=== PATIENT | female | born 1970 | race Caucasian/White ===

== ENCOUNTER → 2023-03-14 14:56 | Outpatient (REF) | payer BC, SELFPAY | LOC: HWRAD 14:56 | PROVIDERS: ATTENDING PHYSICIAN Anesthesiology Pain Medicine; FAMILY PHYSICIAN Family Medicine | DX: M79.641 Pain in right hand (principal) | CPT/HCPCS: 73130 ==

== ENCOUNTER → 2023-04-06 07:08 | Outpatient (REF) | payer BC, SELFPAY | LOC: PAVMRI 07:08 | PROVIDERS: ATTENDING PHYSICIAN Anesthesiology Pain Medicine; FAMILY PHYSICIAN Family Medicine | DX: M54.16 Radiculopathy, lumbar region (principal) | CPT/HCPCS: 72148 ==

== ENCOUNTER → 2023-06-12 07:10 | Outpatient (REF) | payer BC, SELFPAY | LOC: RCS 07:10 | PROVIDERS: ATTENDING PHYSICIAN Internal Medicine Rheumatology; FAMILY PHYSICIAN Family Medicine | DX: M34.9 Systemic sclerosis, unspecified (principal) | CPT/HCPCS: 94727; 94729; 93306; 94060 ==

== ENCOUNTER → 2023-10-18 12:00 | Outpatient (REF) | payer BC, SELFPAY | LOC: DHSLP 12:00 | PROVIDERS: ATTENDING PHYSICIAN Internal Medicine Critical Care Medicine; FAMILY PHYSICIAN Family Medicine | DX: G47.33 Obstructive sleep apnea (adult) (pediatric) (principal) | CPT/HCPCS: 95800 ==

== ENCOUNTER → 2023-12-14 07:56 | Outpatient (REF) | payer BC, SELFPAY | LOC: MRI 3T 07:56 | PROVIDERS: ATTENDING PHYSICIAN Physician Assistant; FAMILY PHYSICIAN Family Medicine | DX: R42 Dizziness and giddiness (principal) | CPT/HCPCS: 70553; A9575 ==

== ENCOUNTER → 2024-02-18 10:22 | Outpatient (REF) | payer BC, SELFPAY | LOC: HWWDC 10:22 | PROVIDERS: ATTENDING PHYSICIAN Obstetrics & Gynecology Gynecology; FAMILY PHYSICIAN Family Medicine | DX: Z12.31 Encounter for screening mammogram for malignant neoplasm of breast (principal) | CPT/HCPCS: 77063; 77067 ==

== ENCOUNTER → 2024-06-16 09:01 | Outpatient (REF) | payer BC, SELFPAY | LOC: HWRCS 09:01 | PROVIDERS: ATTENDING PHYSICIAN Internal Medicine Rheumatology; FAMILY PHYSICIAN Family Medicine | DX: M34.9 Systemic sclerosis, unspecified (principal) | CPT/HCPCS: 93306 ==

== ENCOUNTER → 2024-06-17 06:44 | Outpatient (REF) | payer BC, SELFPAY | LOC: RSP 06:44 | PROVIDERS: ATTENDING PHYSICIAN Internal Medicine Rheumatology; FAMILY PHYSICIAN Family Medicine | DX: M34.9 Systemic sclerosis, unspecified (principal) | CPT/HCPCS: 94727; 94729; 88738; 94060 ==